=== PATIENT | male | born 1930 | race Hispanic/Latino ===

== ENCOUNTER 2016-06-05 10:48 | Emergency (ER) | payer OTHER ==
[2016-06-05 10:48] VITALS: BMI 31.6
--- NOTE | 2016-06-05 11:44 | ED PDOC ---
HPI: Back Time Seen by Provider: 06/05/16 10:55 Chief Complaint (Nursing): Back Pain Chief Complaint (Provider): Back pain History Per: Patient Additional Complaint(s): Pt is an 85 yo male, PMH of HTN, High Cholesterol, Dementia, DM and depression, presents to ED with complaints of worsening of his chronic lower back pain. Denies injury. Reports taking Tylenol, no relief. Pt's at bedside and reports that he had an episode of incontinence this am , which prompted ED visit. no bowel disfunction Past Medical History Reviewed: Nursing Documentation, Vital Signs Vital Signs: Last Vital Signs Temp 98.6 F 06/05/16 11:35 Pulse 66 06/05/16 11:35 Resp 18 06/05/16 11:35 BP 132/60 06/05/16 11:35 Pulse Ox 96 06/05/16 11:35 - Medical History PMH: Anxiety, Arthritis, Dementia, Depression, Diabetes, HTN, Hypercholesterolemia - Surgical History Surgical History: Appendectomy - Family History Family History: States: Unknown Family Hx - Living Arrangements Living Arrangements: With Family - Home Medications Home Medications: Ambulatory Orders Medication Instructions Recorded Citalopram Hydrobromide [Celexa] 10 mg PO DAILY 07/28/14 Clopidogrel [Plavix] 75 mg PO DAILY 07/28/14 Lisinopril [Zestril] 20 mg PO DAILY 07/28/14 Finasteride [Proscar] 5 mg PO DAILY 12/19/15 Tamsulosin [Flomax] 0.4 mg PO DAILY 12/19/15 metFORMIN [glucOPHAGE] 500 mg PO DAILY 12/19/15 Alprazolam [Xanax] 0.5 mg PO BID 01/13/16 Simvastatin 40 mg PO DAILY 01/13/16 Isosorbide Mononitrate [Imdur] 30 mg PO DAILY 02/12/16 Cyclobenzaprine [Cyclobenzaprine 10 mg PO TID #20 tab 06/05/16 HCl] Lidocaine 1 each TP Q12 #12 adh..patch 06/05/16 oxyCODONE/Acetaminophen [Percocet 1 ea PO Q6 PRN #10 tab 06/05/16 5/325 mg Tab] - Allergies Allergies/Adverse Reactions: Allergies Allergy/AdvReac Type Severity Reaction Status Date / Time shellfish derived Allergy SWELLING Verified 01/13/16 10:03 shrimp Allergy SWELLING Verified 12/19/15 08:13 Review of Systems ROS Statement: Except As Marked, All Systems Reviewed And Found Negative Musculoskeletal: Positive for: Back Pain Physical Exam - Reviewed Nursing Documentation Reviewed: Yes Vital Signs Reviewed: Yes - Physical Exam Appears: Positive for: Well, Non-toxic, No Acute Distress Head Exam: Positive for: ATRAUMATIC, NORMAL INSPECTION, NORMOCEPHALIC Skin: Positive for: Normal Color, Warm, DRY Eye Exam: Positive for: EOMI, Normal appearance, PERRL ENT: Positive for: Normal ENT Inspection Neck: Positive for: Normal, Painless ROM Cardiovascular/Chest: Positive for: Regular Rate, Rhythm Respiratory: Positive for: CNT, Normal Breath Sounds Gastrointestinal/Abdominal: Positive for: Normal Exam, Bowel Sounds, Soft Back: Positive for: Normal Inspection. Negative for: L CVA Tenderness, R CVA Tenderness, Vertebral Tenderness, Muscle Spasm Extremity: Positive for: Normal ROM Neurologic/Psych: Positive for: Alert, Oriented - ECG O2 Sat by Pulse Oximetry: 96 Medical Decision Making Medical Decision Making: Medicated with Motrin and Flexeril upon arrival. On re-eval, Pt reports pain now 8/10. Given 1 tab Percocet PO. IMPRESSION: 1. No acute fracture spondylolysis or spondylolisthesis. 2. Mild multilevel degenerative disc disease, worse at L4-5 with mild spinal canal stenosis and moderate neural foraminal stenosis. 3. Focal area of sclerosis in the posterior L3 vertebral body is strictly nonspecific and may represent a bone island however sclerotic metastasis is also a differential consideration. Please correlate with known or suspected history of cancer especially prostatic cancer in this male patient. If clinically indicated, correlation with radionuclide bone scan may be performed. Pt educated on all results and demonstrated full understanding. Pt reports feeling greatly improved after Percocet. Advised to follow up with PMD, return to ED with any concerns Disposition - Clinical Impression Clinical Impression: Chronic back pain - Patient ED Disposition Is Patient to be Admitted: No - Disposition Disposition: Routine/Home Disposition Time: 14:43 Condition: GOOD Prescriptions: Cyclobenzaprine [Cyclobenzaprine HCl] 10 mg PO TID #20 tab Lidocaine 1 each TP Q12 #12 adh..patch oxyCODONE/Acetaminophen [Percocet 5/325 mg Tab] 1 ea PO Q6 PRN #10 tab PRN Reason: Pain, Severe (8-10) Instructions: Chronic Back Pain (ED)
[2016-06-05 11:51] VITALS: BP 132/60; PULSE 66; RESP 18; TEMP 98.6; O2SAT 96
[2016-06-05] MEDS ORDERED: Oxycodone/Acetaminophen 5/325 mg Tab PO STA (13:39)
--- NOTE | 2016-06-05 14:01 | CT ---
PROCEDURE: CT Lumbar Spine without contrast HISTORY: Back pain, incontinence COMPARISON: None. TECHNIQUE: Axial computed tomography images were obtained of the lumbar spine without the use of intravenous contrast. Coronal and sagittal reformatted images were created and reviewed. Radiation dose: Total exam DLP = 1074.67 mGy-cm. This CT exam was performed using one or more of the following dose reduction techniques: Automated exposure control, adjustment of the mA and/or kV according to patient size, and/or use of iterative reconstruction technique. FINDINGS: VERTEBRAE: There is normal alignment of the lumbar vertebral bodies. Lumbar lordosis is maintained. Vertebral bodies are normal height. There is no acute fracture or bone destruction. A focal area of sclerosis in the posterior L3 vertebral body is nonspecific. Evaluation of the conus medullaris and nerve roots of cauda equina is limited on noncontrast CT examination. DISCS/SPINAL CANAL/NEURAL FORAMINA: L1-2: No large disc herniation, neural foraminal or spinal canal stenosis. L2-3: Mild posterior disc bulge. No neural foraminal or spinal canal stenosis. L3-4: Diffuse posterior disc bulge and mild bilateral facet arthropathy result in mild neural foraminal stenosis. No spinal canal stenosis. L4-5: Diffuse posterior disc bulge, mild ligamentum flavum infolding and moderate bilateral facet arthropathy result in moderate bilateral neural foraminal stenosis and mild spinal canal stenosis. L5-S1: Posterior disc bulge and moderate bilateral facet arthropathy result in severe bilateral neural foraminal stenosis. No central spinal canal stenosis. PARASPINAL SOFT TISSUES: The paraspinous soft tissues are normal. OTHER FINDINGS: Image portion of the retroperitoneum demonstrate a 3.7 cm simple cyst in the upper pole of the right kidney and a smaller exophytic cyst simple cyst in the upper pole of the right kidney posteriorly. There is a 5 mm nonobstructing stone in the right upper pole. There is mild bilateral renal cortical atrophy. IMPRESSION: 1. No acute fracture spondylolysis or spondylolisthesis. 2. Mild multilevel degenerative disc disease, worse at L4-5 with mild spinal canal stenosis and moderate neural foraminal stenosis. 3. Focal area of sclerosis in the posterior L3 vertebral body is strictly nonspecific and may represent a bone island however sclerotic metastasis is also a differential consideration. Please correlate with known or suspected history of cancer especially prostatic cancer in this male patient. If clinically indicated, correlation with radionuclide bone scan may be performed.
[2016-06-05] MEDS ORDERED: Oxycodone/Acetaminophen 5/325 mg Tab ONE (14:02)
== END 2016-06-05 15:38 | disposition home or self-care (01) ==
LOC: H.ER 10:48
DX: M54.9 Dorsalgia, unspecified (principal); E11.9 Type 2 diabetes mellitus without complications

== ENCOUNTER 2016-09-08 13:22 | Emergency (ER) | payer OTHER ==
[2016-09-08 13:22] VITALS: BMI 31.6
[2016-09-08] MEDS: Oxycodone/Acetaminophen 5/325 mg Tab PO STA (14:28)
--- NOTE | 2016-09-08 14:31 | ED PDOC ---
HPI: Back Time Seen by Provider: 09/08/16 13:54 Chief Complaint (Nursing): Back Pain Chief Complaint (Provider): Back Pain History Per: Patient Additional Complaint(s): 85 yo male, PMH of HTN, DM, High Cholesterol, presents to ED for evaluation of back pain x several years. Pt reports in the last 2-3 days pain has become severe. Pt started on Gabapentin by his PMD, which he has been taking without relief. No bowel or bladder dysfunction Past Medical History Reviewed: Nursing Documentation, Vital Signs - Medical History PMH: Anxiety, Arthritis, Dementia, Depression, Diabetes, HTN, Hypercholesterolemia - Surgical History Surgical History: Appendectomy - Family History Family History: States: Unknown Family Hx - Living Arrangements Living Arrangements: With Family - Social History Current smoker - smoking cessation education provided: No Alcohol: None Drugs: Denies - Home Medications Home Medications: Ambulatory Orders Medication Instructions Recorded Citalopram Hydrobromide [Celexa] 10 mg PO DAILY 07/28/14 Clopidogrel [Plavix] 75 mg PO DAILY 07/28/14 Lisinopril [Zestril] 20 mg PO DAILY 07/28/14 Finasteride [Proscar] 5 mg PO DAILY 12/19/15 Tamsulosin [Flomax] 0.4 mg PO DAILY 12/19/15 metFORMIN [glucOPHAGE] 500 mg PO DAILY 12/19/15 Alprazolam [Xanax] 0.5 mg PO BID 01/13/16 Simvastatin 40 mg PO DAILY 01/13/16 Isosorbide Mononitrate [Imdur] 30 mg PO DAILY 02/12/16 Cyclobenzaprine [Cyclobenzaprine 10 mg PO TID #20 tab 06/05/16 HCl] Lidocaine 1 each TP Q12 #12 adh..patch 06/05/16 oxyCODONE/Acetaminophen [Percocet 1 ea PO Q6 PRN #10 tab 06/05/16 5/325 mg Tab] Lidocaine 5% [Lidoderm] 1 ea TD Q12 #12 patch 09/08/16 - Allergies Allergies/Adverse Reactions: Allergies Allergy/AdvReac Type Severity Reaction Status Date / Time shellfish derived Allergy SWELLING Verified 01/13/16 10:03 shrimp Allergy SWELLING Verified 12/19/15 08:13 Review of Systems ROS Statement: Except As Marked, All Systems Reviewed And Found Negative Musculoskeletal: Positive for: Back Pain Physical Exam - Reviewed Nursing Documentation Reviewed: Yes Vital Signs Reviewed: Yes - Physical Exam Appears: Positive for: Well, Non-toxic, No Acute Distress Head Exam: Positive for: ATRAUMATIC, NORMAL INSPECTION, NORMOCEPHALIC Skin: Positive for: Normal Color, Warm, DRY Eye Exam: Positive for: EOMI, Normal appearance, PERRL ENT: Positive for: Normal ENT Inspection Neck: Positive for: Normal, Painless ROM Cardiovascular/Chest: Positive for: Regular Rate, Rhythm Respiratory: Positive for: CNT, Normal Breath Sounds Gastrointestinal/Abdominal: Positive for: Normal Exam, Bowel Sounds, Soft Back: Positive for: Normal Inspection, Vertebral Tenderness, Other (LS Paraspinal tenderness) Extremity: Positive for: Normal ROM Neurologic/Psych: Positive for: Alert, Oriented Medical Decision Making Medical Decision Making: Medicated with percocet PO Reports feeling improved on re-eval UA resulted WNL CT LS SPINE IMPRESSION: Multilevel disc bulge without focal disc herniation. Mild central spinal stenosis L3-4 and L4-5. Multilevel neural foraminal stenosis as above. No fracture/ dislocation. Mild levoscoliosis. Globular appearance of the cervix. Recommend further evaluation with transvaginal pelvic ultrasound. Disposition - Clinical Impression Clinical Impression: Back pain - Patient ED Disposition Is Patient to be Admitted: No - Disposition Disposition: Routine/Home Disposition Time: 16:28 Condition: STABLE Prescriptions: Lidocaine 5% [Lidoderm] 1 ea TD Q12 #12 patch Instructions: Acute Low Back Pain (ED) - POA Present On Arrival: None
[2016-09-08 15:05] LABS: SQUAMOUS EPITHIAL < 1 /hpf (0-5); URINE BILIRUBIN NEGATIVE (NEGATIVE); URINE BLOOD NEGATIVE (NEGATIVE); URINE CLARITY CLEAR (Clear); URINE COLOR YELLOW (YELLOW); URINE GLUCOSE (UA) NEG (Normal); URINE LEUKOCYTE ESTERASE NEG Leu/uL (Negative); URINE NITRATE NEGATIVE (NEGATIVE); URINE PROTEIN NEGATIVE (NEGATIVE); URINE UROBILINOGEN 0.2-1.0 mg/dL (0.2-1.0)
--- NOTE | 2016-09-08 15:38 | CT ---
PROCEDURE: CT Lumbar Spine without contrast HISTORY: severe lower back pain COMPARISON: 06/05/2016 CT lumbar spine TECHNIQUE: Axial computed tomography images were obtained of the lumbar spine without the use of intravenous contrast. Coronal and sagittal reformatted images were created and reviewed. Radiation dose: Total exam DLP = 1703.09 mGy-cm. This CT exam was performed using one or more of the following dose reduction techniques: Automated exposure control, adjustment of the mA and/or kV according to patient size, and/or use of iterative reconstruction technique. FINDINGS: VERTEBRAE: The vertebral bodies are maintained in height. The transverse processes and posterior elements are intact. There is mild focal sclerosis along the right lateral aspect of the L3 vertebral body as on prior examination. Nonspecific. No other lytic or blastic osseous lesion is appreciated. There is mild levo scoliotic curvature. DISCS/SPINAL CANAL/NEURAL FORAMINA: L1-2: Unremarkable. L2-3: Unremarkable. L3-4: Mild disc bulge. No focal herniation. Mild bilateral neural foraminal stenosis. Mild central spinal stenosis. L4-5: Diffuse disc bulge. No focal herniation. Mild bilateral degenerative facet arthropathy. Moderate right and severe left neural foraminal stenosis. Mild central spinal stenosis. L5-S1: Mild diffuse disc bulge. No focal herniation. Moderate bilateral neural foraminal stenosis. Bilateral degenerative facet arthropathy. No central spinal stenosis. PARASPINAL SOFT TISSUES: Globular appearance of the cervix. Recommend further evaluation with transvaginal pelvic ultrasound. OTHER FINDINGS: None. IMPRESSION: Multilevel disc bulge without focal disc herniation. Mild central spinal stenosis L3-4 and L4-5. Multilevel neural foraminal stenosis as above. No fracture/ dislocation. Mild levoscoliosis. Globular appearance of the cervix. Recommend further evaluation with transvaginal pelvic ultrasound.
--- NOTE | 2016-09-08 16:13 | RAD ---
PROCEDURE: Radiographs of the Lumbar Spine. HISTORY: severe lower back pain COMPARISON: No prior. FINDINGS: BONES: The vertebral bodies are maintained in. The transverse processes and posterior elements are intact. DISC SPACES: There is narrowing of the L2-3 and L3-4 disc spaces with associated osteophytes, consistent with degenerative disc disease. OTHER FINDINGS: None. IMPRESSION: Degenerative disc disease L2-3 and L3-4. No evidence of fracture/dislocation.
[2016-09-08 17:28] VITALS: BP 131/75; PULSE 82; O2SAT 98
== END 2016-09-08 17:28 | disposition home or self-care (01) ==
LOC: H.ER 13:22
DX: M54.5 Low back pain (principal); E11.9 Type 2 diabetes mellitus without complications; F03.90 Unspecified dementia, unspecified severity, without behavioral disturbance, psychotic disturbance, mood disturbance, and anxiety; I10 Essential (primary) hypertension; M51.36 Other intervertebral disc degeneration, lumbar region

== ENCOUNTER 2018-07-21 14:28 | Emergency (ER) | payer OTHER ==
[2018-07-21 14:29] VITALS: BMI 31.6
[2018-07-21 14:38] VITALS: RESP 18; TEMP 97.8; O2SAT 99
--- NOTE | 2018-07-21 15:42 | ED PDOC ---
Lower Extremity Pain/Injury Time Seen by Provider: 07/21/18 15:09 Chief Complaint (Nursing): Lower Extremity Problem/Injury Chief Complaint (Provider): Left Leg Pain History Per: Patient History/Exam Limitations: no limitations Onset/Duration Of Symptoms: Days (x1 week), Gradual Current Symptoms Are (Timing): Still Present Additional Complaint(s): 87 year old male presents to the ED for evaluation of gradual onset left leg pain localized to the calf for the past week, worsening since onset. He describes the pain as aching, but otherwise denies swelling, injury, trauma, and recent immobilization. Further denies back pain, abdominal pain, and knee / ankle pain. Past Medical History Reviewed: Historical Data, Nursing Documentation, Vital Signs Vital Signs: Last Vital Signs Temp 97.8 F 07/21/18 14:35 Pulse 66 07/21/18 14:35 Resp 18 07/21/18 14:35 BP 121/50 L 07/21/18 14:35 Pulse Ox 99 07/21/18 14:35 Primary Care Provider: Sommer Chaparro (river crossing supervisor: Phil) - Medical History PMH: Anxiety, Arthritis, Benign Prostatic Hyperplasia, CAD, Dementia, Depression, Diabetes, HTN, Hypercholesterolemia - Surgical History Surgical History: Appendectomy Other surgeries: catheterization with stent; prostate surgery - Family History Family History: States: Unknown Family Hx - Social History Current smoker - smoking cessation education provided: No - Home Medications Home Medications: Ambulatory Orders Medication Instructions Recorded Citalopram Hydrobromide [Celexa] 10 mg PO DAILY 07/28/14 Clopidogrel [Plavix] 75 mg PO DAILY 07/28/14 Lisinopril [Zestril] 20 mg PO DAILY 07/28/14 Finasteride [Proscar] 5 mg PO DAILY 12/19/15 Tamsulosin [Flomax] 0.4 mg PO DAILY 12/19/15 metFORMIN [glucOPHAGE] 500 mg PO DAILY 12/19/15 Alprazolam [Xanax] 0.5 mg PO BID 01/13/16 Simvastatin 40 mg PO DAILY 01/13/16 Isosorbide Mononitrate ER [Imdur 30 mg PO DAILY 02/12/16 ER] Cyclobenzaprine [Cyclobenzaprine 10 mg PO TID #20 tab 06/05/16 HCl] Lidocaine 1 each TP Q12 #12 adh..patch 04/07/17 oxyCODONE/Acetaminophen [Percocet 1 ea PO Q6 PRN #10 tab 06/05/16 5/325 mg Tab] Lidocaine 5% [Lidoderm] 1 ea TD Q12 #12 patch 09/08/16 Acetaminophen [Tylenol Extra 1,000 mg PO Q6 PRN #100 tablet 07/21/18 Strength] Lidocaine 5% [Lidoderm] 1 ea TD DAILY PRN #30 patch 07/21/18 Naproxen [Naprosyn] 1 tab PO BID PRN #30 tab 07/21/18 - Allergies Allergies/Adverse Reactions: Allergies Allergy/AdvReac Type Severity Reaction Status Date / Time shellfish derived Allergy SWELLING Verified 01/13/16 10:03 shrimp Allergy SWELLING Verified 12/19/15 08:13 Review of Systems ROS Statement: Except As Marked, All Systems Reviewed And Found Negative (as per HPI) Musculoskeletal: Positive for: Leg Pain (aching left calf pain without swelling; no knee or ankle pain) Physical Exam - Reviewed Nursing Documentation Reviewed: Yes Vital Signs Reviewed: Yes - Physical Exam Appears: Positive for: In Acute Distress (mild painful) Head Exam: Positive for: ATRAUMATIC, NORMOCEPHALIC Skin: Positive for: Warm, Dry Eye Exam: Positive for: EOMI, PERRL Neck: Positive for: Painless ROM, Supple Cardiovascular/Chest: Positive for: Regular Rate, Rhythm. Negative for: Murmur Respiratory: Positive for: Normal Breath Sounds. Negative for: Respiratory Distress Gastrointestinal/Abdominal: Positive for: Soft. Negative for: Tenderness Back: Positive for: Normal Inspection, Other (negative bilateral SLR test). Negative for: Decreased ROM Extremity: Positive for: Normal ROM (full ROM at left knee and ankle), Calf Tenderness (to palpation of left mid calf). Negative for: Deformity, Swelling (or edema to left calf) Lymphatic: Negative for: Adenopathy Neurological/Psych: Positive for: Awake, Alert, Other (distally neurovascular intact). Negative for: Motor/Sensory Deficits - Laboratory Results Result Diagrams: 07/21/18 15:51 07/21/18 15:51 - ECG O2 Sat by Pulse Oximetry: 99 (RA) Pulse Ox Interpretation: Normal Medical Decision Making Medical Decision Making: Time: 1521 Initial Impression: left calf pain DDx includes but is not limited to: calf strain, DVT, occult fracture, Bakers cyst, PVD Initial Plan: --CMP --CBC with differential --D Dimer --PT / PTT --Toradol 15mg IVP --Tylenol 975mg PO --Left tib/fib XR --LLE US duplex vein / artery --Reevaluation Accession No. : [id number] Patient Name / ID : WILDER SINHA / [id number] Exam Date : 07/21/2018 16:30:57 ( Approved ) Study Comment : Sex / Age : M / 7Y Creator : Radha Vo MD Dictator : Radha Vo MD Thermal Molder : Records Administrator : Radha Vo MD Approver2 : Report Date : 07/21/2018 17:22:21 My Comment : PROCEDURE: Radiographs of the left tibia and fibula. HISTORY: LEFT calf pain atraumatic COMPARISON: None available. TECHNIQUE: Frontal and lateral views obtained. FINDINGS: BONES: No acute displaced fracture. JOINT SPACES: No dislocation. OTHER FINDINGS: Soft tissues appear unremarkable. No evidence of radiopaque foreign body. IMPRESSION: No acute displaced fracture, dislocation, or significant joint effusion identified. If symptoms persist, or if there is continued clinical concern, x-ray follow-up in 7-10 days should be considered. Accession No. : [id number] Patient Name / ID : WILDER ISNHA / [id number] Exam Date : 07/21/2018 16:18:36 ( Approved ) Study Comment : Sex / Age : M / 87Y Creator : Bret Alberto MD Dictator : Bret Alberto MD Thermal Molder : Records Administrator : Bret Alberto MD Approver2 : Report Date : 07/21/2018 17:12:09 My Comment : Date of service: 07/21/2018 PROCEDURE: Duplex ultrasound of the left lower extremity arteries. HISTORY: LEFT calf pain COMPARISON: None available. TECHNIQUE: Grayscale and duplex Doppler evaluation of the left common femoral, superficial femoral, popliteal, posterior tibial and dorsalis pedis arteries was performed.. FINDINGS: COMMON FEMORAL ARTERY: Patent demonstrate mild atherosclerotic disease maximal flow velocity of 111.6 cm/s. Biphasic waveform is noted. SUPERFICIAL FEMORAL ARTERY:Patent. Maximal flow velocity of 72.8 cm/s. Biphasic waveform is noted POPLITEAL ARTERY:Patent. Maximal flow velocity of 65.1 cm/s. Biphasic waveform is noted POSTERIOR TIBIAL ARTERY: Patent. Maximal flow velocity of 77.2 cm/s. Biphasic waveform is noted DORSALIS PEDIS ARTERY: Patent. Maximal flow velocity of 52.1 cm/s. Biphasic waveform is noted OTHER FINDINGS: None. IMPRESSION: Mild atherosclerotic disease. Biphasic waveform noted in the left lower ext remity arterial system. No ultrasound Doppler evidence of hemodynamically significant stenosis. Accession No. : [id number] Patient Name / ID : WILDER SINHA / [id number] Exam Date : 07/21/2018 16:08:55 ( Approved ) Study Comment : Sex / Age : M / 87Y Creator : Bret Alberto MD Dictator : Bret Alberto MD Thermal Molder : Records Administrator : Bret Alberto MD Approver2 : Report Date : 07/21/2018 17:08:56 My Comment : Date of service: 07/21/2018 HISTORY: LEFT calf pain r/o DVT. PRIORS: No prior similar study available for comparison FINDINGS: 2-D, color and duplex Doppler analysis of the lower extremity venous circulation using routine protocol from the femoral veins through the popliteal veins. Venous compressibility: Normal. Flow and augmentation patterns: Normal. Visualized veins upper third of calf: Normal. Casiano cyst: None. IMPRESSION: No sonographic or Doppler evidence for DVT in left lower extremity. Labs unremarkable. DW pt and findings and plan of care. Lidoderm, nsaids/acetaminophen, f/u PMD. Scribe Attestation: Documented by Kathia Flannery, acting as a scribe for Trinidad Felzi MD. Provider Scribe Attestation: All medical record entries made by the Scribe were at my direction and perso priya dictated by me. I have reviewed the chart and agree that the record accurately reflects my personal performance of the history, physical exam, medical decision making, and the department course for this patient. I have also personally directed, reviewed, and agree with the discharge instructions and disposition. Disposition - Clinical Impression Clinical Impression: Pain of left calf Counseled Patient/Family Regarding: Studies Performed, Diagnosis, Need For Followup, Rx Given - Disposition Referrals: Pierre Sibley Jr., MD [Family Provider] - Disposition: Routine/Home Disposition Time: 17:00 Condition: STABLE Prescriptions: Acetaminophen [Tylenol Extra Strength] 1,000 mg PO Q6 PRN #100 tablet PRN Reason: FEVER OR PAIN Lidocaine 5% [Lidoderm] 1 ea TD DAILY PRN #30 patch PRN Reason: PAIN Naproxen [Naprosyn] 1 tab PO BID PRN #30 tab PRN Reason: Pain Instructions: Lower Extremity Muscle Strain (DC) Print Language: BELARUSIAN
[2018-07-21 16:17] LABS: BASO # 0.1 K/uL (0.0-0.2); BASO % 0.9 % (0.0-2.0); EOS # 0.3 K/uL (0.0-0.7); EOS % 4.3 % (0.0-4.0); HEMOGLOBIN 12.8 g/dL (12.0-18.0); LYMPH # 2.3 K/uL (1.0-4.3); LYMPH % 32.3 % (20.0-40.0); MEAN CELL VOLUME 95.2 fl (80.0-94.0); MEAN CORPUSCULAR HEMOGLOBIN 31.8 pg (27.0-31.0); MEAN CORPUSCULAR HGB CONC 33.4 g/dL (33.0-37.0); MEAN PLATELET VOLUME 8.5 fl (7.2-11.7); MONO # 0.7 K/uL (0.0-0.8); MONO % 10.6 % (0.0-10.0); NEUT # 3.6 K/uL (1.8-7.0); NEUT % 51.9 % (50.0-75.0); RBC 4.02 Mil/uL (4.40-5.90); RED CELL DISTRIBUTION WIDTH 13.6 % (11.5-14.5)
[2018-07-21 16:27] LABS: ALB/GLOB RATIO 1.4 (1.0-2.1); ALBUMIN 3.7 g/dL (3.5-5.0); ALT/SGPT 20 U/L (21-72); AST/SGOT 20 U/L (17-59); BLOOD UREA NITROGEN 18 mg/dl (9-20); CALCIUM 8.4 mg/dL (8.4-10.2); GFR NON-AFRICAN AMERICAN > 60
[2018-07-21 16:29] LABS: PROTHROMBIN TIME 11.4 Seconds (9.8-13.1)
--- NOTE | 2018-07-21 17:12 | US ---
Date of service: 07/21/2018 HISTORY: LEFT calf pain r/o DVT. PRIORS: No prior similar study available for comparison FINDINGS: 2-D, color and duplex Doppler analysis of the lower extremity venous circulation using routine protocol from the femoral veins through the popliteal veins. Venous compressibility: Normal. Flow and augmentation patterns: Normal. Visualized veins upper third of calf: Normal. Casiano cyst: None. IMPRESSION: No sonographic or Doppler evidence for DVT in left lower extremity.
--- NOTE | 2018-07-21 17:16 | US ---
Date of service: 07/21/2018 PROCEDURE: Duplex ultrasound of the left lower extremity arteries. HISTORY: LEFT calf pain COMPARISON: None available. TECHNIQUE: Grayscale and duplex Doppler evaluation of the left common femoral, superficial femoral, popliteal, posterior tibial and dorsalis pedis arteries was performed.. FINDINGS: COMMON FEMORAL ARTERY: Patent demonstrate mild atherosclerotic disease maximal flow velocity of 111.6 cm/s. Biphasic waveform is noted. SUPERFICIAL FEMORAL ARTERY:Patent. Maximal flow velocity of 72.8 cm/s. Biphasic waveform is noted POPLITEAL ARTERY:Patent. Maximal flow velocity of 65.1 cm/s. Biphasic waveform is noted POSTERIOR TIBIAL ARTERY: Patent. Maximal flow velocity of 77.2 cm/s. Biphasic waveform is noted DORSALIS PEDIS ARTERY: Patent. Maximal flow velocity of 52.1 cm/s. Biphasic waveform is noted OTHER FINDINGS: None. IMPRESSION: Mild atherosclerotic disease. Biphasic waveform noted in the left lower extremity arterial system. No ultrasound Doppler evidence of hemodynamically significant stenosis.
--- NOTE | 2018-07-21 17:26 | RAD ---
PROCEDURE: Radiographs of the left tibia and fibula. HISTORY: LEFT calf pain atraumatic COMPARISON: None available. TECHNIQUE: Frontal and lateral views obtained. FINDINGS: BONES: No acute displaced fracture. JOINT SPACES: No dislocation. OTHER FINDINGS: Soft tissues appear unremarkable. No evidence of radiopaque foreign body. IMPRESSION: No acute displaced fracture, dislocation, or significant joint effusion identified. If symptoms persist, or if there is continued clinical concern, x-ray follow-up in 7-10 days should be considered.
[2018-07-21] MEDS ORDERED: Lidocaine 5% Patch TD STA (17:58)
[2018-07-21] MEDS ORDERED: Lidocaine 5% Patch TD ONE (18:14)
[2018-07-21 18:25] VITALS: BP 126/67; PULSE 52
== END 2018-07-21 17:58 | disposition home or self-care (01) ==
LOC: H.ER 14:28
DX: M79.662 Pain in left lower leg (principal); E11.9 Type 2 diabetes mellitus without complications; Z86.59 Personal history of other mental and behavioral disorders; I10 Essential (primary) hypertension; I25.10 Atherosclerotic heart disease of native coronary artery without angina pectoris; N40.0 Benign prostatic hyperplasia without lower urinary tract symptoms; Z79.84 Long term (current) use of oral hypoglycemic drugs; F03.90 Unspecified dementia, unspecified severity, without behavioral disturbance, psychotic disturbance, mood disturbance, and anxiety; E78.00 Pure hypercholesterolemia, unspecified
CPT/HCPCS: 73590; 80053; 85025; 85378; 85610; 85730; 93926; 93971; 96374; 99284; J1885